=== PATIENT | female | born 1960 | race Caucasian/White ===

== ENCOUNTER 2021-03-30 13:39 | Outpatient (CLI) | payer MEDICARE, OTHER, SELFPAY ==
--- NOTE | ~2021-03-30 | US_ITS ---
EXAMINATION: US carotid duplex BI DATE: 03/30/2021 14:27 INDICATION: Peripheral atherosclerosis. TECHNIQUE: Grayscale, color Doppler, and pulsed Doppler images of the cervical carotid arteries were obtained. The degree of vessel stenosis is placed in one of the following categories: normal, <50%, 5 0-69%, >=70% but less than near-occlusion, near-occlusion, or total occlusion. Note that percent sten osis relative to normal distal artery lumen diameter is indirectly measured from velocity measurement s as described by Toan, et al. Radiology 2003; 229:340-346. Notes: Normal: Peak systolic velocity <125 centimeters/sec and no plaque <50%. Peak systolic velocity <125 ( EDV <40; ICA/CCA PSV ratio <2.0; used these factors only a tandem lesions or low cardiac output or co ntralateral disease) 50-69 %: PSV 125-230 (EDV 40-100; ratio 2-4) >= 70% but less than near occlusion: PSV greater than 230 (EDV > 100; ratio> 4.0) Near Occlusion: PSV that is variable; markedly narrowed lumen Occlusion: Absent flow on color/spectral Doppler and no lumen on allen scale. COMPARISON: None. FINDINGS: RIGHT: The right common carotid artery (CCA) peak systolic velocity (PSV) is 120 cm/s. The right internal ca rotid artery (ICA) PSV is 90 cm/s. The right ICA end-diastolic velocity (EDV) is 25 cm/s. The right I CA/CCA PSV ratio is 0.7. The external carotid artery (ECA) PSV is 143 cm/s. There is antegrade flow i n the right vertebral artery. LEFT: The left CCA PSV is 107 cm/s. The left ICA PSV is 127 cm/s. The left ICA EDV is 34 cm/s. The left ICA /CCA PSV ratio is 1.2. The ECA PSV is 190 cm/s. There is antegrade flow in the left vertebral artery . IMPRESSION: 1. Less than 50% stenosis in the right internal carotid artery by sonographic criteria. 2. 50-69% stenosis in the left internal carotid artery by sonographic criteria. Reviewed, dictated and finalized at location B. IMPRESSION: 1. Less than 50% stenosis in the right internal carotid artery by sonographic c riteria. 2. 50-69% stenosis in the left internal carotid artery by sonographic criteria.
== END 2021-03-30 13:40 | disposition home or self-care (01) ==
PROVIDERS: PCP Family Medicine; Visit Provider Family Medicine
DX: R09.89 Other specified symptoms and signs involving the circulatory and respiratory systems (principal); I65.23 Occlusion and stenosis of bilateral carotid arteries
CPT/HCPCS: 93880

== ENCOUNTER 2021-04-28 13:28 | Outpatient (CLI) | payer MEDICARE, OTHER, SELFPAY ==
--- NOTE | ~2021-04-28 | MM_ITS ---
EXAMINATION: MM screening [facility] BI w moises HISTORY: Screening TECHNIQUE: Craniocaudal and mediolateral oblique 3-D tomosynthesis images were obtained and synthetic 2-D images were generated. CAD analysis was submitted and interpreted. COMPARISON: No prior studies for comparison. BREAST PARENCHYMAL COMPOSITION: Breast composed of scattered areas of fibroglandular density FINDINGS: There is a 7 mm circumscribed mass in the upper inner quadrant of the right breast. There a re no suspicious masses, calcifications or architectural distortion in the left breast to suggest mal ignancy. IMPRESSION: 1. Circumscribed mass upper inner quadrant of the right breast measuring 7 mm. 2. Additional mammographic views and possible breast ultrasound are recommended. BI-RADS Category 0: Incomplete: Needs additional imaging evaluation. Reviewed, dictated and finalized at location A. IMPRESSION: 1. Circumscribed mass upper inner quadrant of the right breast measuring 7 mm. 2. Additional mammographic views and possible breast ultrasound are recommended . BI-RADS Category 0: Incomplete: Needs additional imaging evaluation.
--- NOTE | ~2021-04-28 | DEXA_ITS ---
Bone Density Report Name: Carleen Pepe Age: 60 Sex: Female Ethnicity: White Date of : 1960 Indication: postmenopausal; height loss; hysterectomy; Referring Provider: Gladis Joseph Study: Bone densitometry was performed. Exam Date: April 28, 2021 Accession number: [id number] Bone Density: Region BMD T-score Z-score Classification AP Spine (L1, L4) 1.248 1.9 3.5 Normal Femoral Neck (Left) 0.904 0.5 1.9 Normal Total Hip (Left) 1.165 1.8 2.9 Normal Total Hip Bilateral Avg 1.119 1.5 2.5 Normal Femoral Neck (Right) 0.840 -0.1 1.3 Normal Total Hip (Right) 1.071 1.1 2.1 Normal World Health Organization criteria for BMD impression classify patients as: Normal (T-score at or above -1.0), Osteopenia (T-score between -1.0 and -2.5), or Osteoporosis (T-score at or below -2.5). 10-year Fracture Risk: FRAX not reported because: All T-scores for Spine Total, Hip Total, Femoral Neck at or above -1.0 Clinical Information Provided by Patient: Smokes Has the following medical conditions: Hysterectomy Patient maximum height was 65 Menopause Age: 50 Drinks caffeinated beverages Onset of menses at age 12 Number of children 2 Impression: The patient has normal bone mass. The patient has risk factors, including: smoking. Discussion: BONE DENSITY IS ABOVE THE MINIMUM DESIRABLE LEVEL AT ALL SKELETAL SITES TESTED. This patient?s bone mineral density is above the minimum desirable level (T-score -1.0 or better) at all sites measured. The patient should follow a healthful lifestyle (good nutrition with adequate calcium and vitamin D, and appropriate weight-bearing exercise). Follow-Up: Consider repeating this study in 5 years or sooner if there is some new clinical indication. Reported by: ANA on 04/28/2021 1:52:00 PM. Reviewed, dictated and finalized at location ALydia SANTOS
== END 2021-04-28 13:29 | disposition home or self-care (01) ==
PROVIDERS: PCP Family Medicine; Visit Provider Family Medicine
DX: Z12.31 Encounter for screening mammogram for malignant neoplasm of breast (principal); Z78.0 Asymptomatic menopausal state; R92.8 Other abnormal and inconclusive findings on diagnostic imaging of breast
CPT/HCPCS: 77063; 77067; 77080

== ENCOUNTER 2021-05-06 10:55 | Outpatient (CLI) | payer MEDICARE, OTHER, SELFPAY ==
--- NOTE | ~2021-05-06 | MMUS_ITS ---
EXAMINATION: MM diagnostic mammo unilat RT, US breast RT complete HISTORY: Circumscribed 7 mm mass in upper inner quadrant of right breast on 04/28/2021 screening mammo gram TECHNIQUE: Additional 3-D tomosynthesis images of the right breast were performed and synthetic 2-D i mages were generated. CAD analysis was submitted and interpreted. High resolution complete right yue st ultrasound was performed. COMPARISON: 04/28/2021 bilateral digital screening mammogram FINDINGS: MAMMOGRAPHIC FINDINGS: Approximately 4 x 7 mm circumscribed low-density opacity is noted posteriorly in the upper inner quad rant of the right breast. Approximately 6.5 x 8.4 mm posterior upper outer quadrant opacity is noted. This has a radiolucent ce ntral area suggesting the fatty hilus of a probable lymph node. ULTRASOUND: 2:00 7 cm from nipple: 2.9 x 3.7 x 5.2 mm sonolucency without internal vascularity or suspicious shad owing 7:00 3 cm from nipple: 5.2 x 2.3 x 3.6 mm sonolucency, consistent with small cyst No suspicious mass or shadowing is evident. IMPRESSION: 1. Probable benign findings 2. 6 month diagnostic right mammogram and right breast ultrasound follow-up are recommended BI-RADS category 3, probably benign findings. Reviewed, dictated and finalized at location A. IMPRESSION: 1. Probable benign findings 2. 6 month diagnostic right mammogram and right breast ultrasound follow-up are recommended BI-RADS category 3, probably benign findings.
== END 2021-05-06 10:56 | disposition home or self-care (01) ==
LOC: ANHIMG 10:56
PROVIDERS: PCP Family Medicine; Visit Provider Family Medicine
DX: R92.8 Other abnormal and inconclusive findings on diagnostic imaging of breast (principal)
CPT/HCPCS: 76641; 77065

== ENCOUNTER → 2021-06-03 04:23 | Outpatient (CLI) | payer MEDICARE, OTHER, SELFPAY ==
[2021-06-03 18:23] LABS: SARS-CoV-2 RNA PCR Negative
== END ==
PROVIDERS: PCP Family Medicine; Visit Provider Family Medicine
DX: R05 Cough (principal); Z20.822 Contact with and (suspected) exposure to COVID-19
CPT/HCPCS: C9803; U0003; U0005

== ENCOUNTER 2021-07-07 01:39 | Day surgery (SDC) | payer MEDICARE, OTHER, SELFPAY ==
[2021-05-26 14:07] VITALS: BMI 26.7
--- NOTE | 2021-07-06 14:20 | PM.HPGS ---
History of Present Illness History of Present Illness Consent: Risks, benefits, and alternatives have been discussed and questions answered. Patient agrees to proceed with procedure. Chief complaint: neoplasm screening Narrative: Carleen Pepe is a 60 year old female referred for colon cancer screening. There is a family history of colon cancer Review of Systems Review of Systems: All systems reviewed & are unremarkable except as noted in HPI and below PMFSH Past Medical History Medical History Allergies Anxiety Arthritis Arthritis of carpometacarpal (CMC) joint of right thumb Diabetes Hypertension STEEN (nonalcoholic steatohepatitis) Type 2 diabetes mellitus with diabetic neuropathy, unspecified A1C was 7, some time last year (2018) per pt Type 2 diabetes mellitus with hyperglycemia Surgical History Surgical History H/O: section History of partial hysterectomy Hx of neck surgery Family History Family History Sibling Family history of diabetes mellitus in first degree relative Father Diabetes mellitus Mother Diabetes mellitus Hypertension Depression Heart disease Cerebrovascular accident Social History Social History Smoking packs per day: 1 Smoking cigarettes per day: 20.0 Smoking status: Former smoker Tobacco type: cigarettes Second hand tobacco smoke exposure: Yes Alcohol intake: former Substance use: former Substance use type: marijuana Living arrangements: alone Gender identity (if verbalized by the patient): Female Spiritual care concerns: No Agree to blood products: Yes Meds Home Medications and Allergies Home Medications Medication Instructions Recorded Confirmed Type lamotrigine 200 mg tablet 200 mg PO BID tablet 07/19/20 06/24/21 History aspirin 81 mg tablet,delayed 81 mg PO DAILY 02/21/21 06/24/21 History release calcium polycarbophil 625 mg tablet 1,250 mg PO DAILY 02/21/21 06/24/21 History duloxetine 30 mg capsule,delayed 60 mg PO DAILY cap 02/21/21 06/24/21 History release multivitamin 1 tablet PO DAILY 02/21/21 06/24/21 History cariprazine 1.5 mg capsule 1.5 mg PO DAILY 03/21/21 06/24/21 History rosuvastatin 10 mg tablet 10 mg PO DAILY #90 tablet 03/31/21 06/24/21 Rx quetiapine 100 mg tablet 100 mg PO QHS 04/13/21 06/24/21 History glimepiride 1 mg tablet 1 mg PO BIDWMEAL #180 tablet 04/15/21 06/24/21 Rx metformin 1,000 mg tablet 1,000 mg PO BID #180 tablet 04/27/21 06/24/21 Rx lisinopril 20 1 tablet PO BID 90 Days #180 tablet 06/16/21 06/24/21 Rx mg-hydrochlorothiazide 25 mg tablet hydrocodone 5 mg-acetaminophen 325 1 tablet PO Q6H PRN #30 tablet 06/24/21 06/24/21 Rx mg tablet Allergies Allergy/AdvReac Type Severity Reaction Status Date / Time No Known Allergies Allergy Verified 07/07/21 07:15 Exam Resp: Auscultation: clear to auscultation bilaterally Cardio: Rate: regular rate Rhythm: regular rhythm GI: GI Palp: Yes Soft to palpation and No Tenderness to palpation present (GI) Assessment and Plan Assessment and plan (1) Colon cancer screening: Code(s): Z12.11 - Encounter for screening for malignant neoplasm of colon Status: Acute Assessment and Plan: Colonoscopy with possible biopsy or polypectomy or cautery or injection of substances.
[2021-07-07 07:20] VITALS: BP 148/47; PULSE 85; RESP 20; TEMP 36.2; O2SAT 96; BMI 26.7
[2021-07-07 07:36] LABS: Glucose Point of Care 235 mg/dl (65-105)
[2021-07-07] MEDS: LACTATED RINGERS 1,000 ML 150 ML IV CONT (07:43)
--- NOTE | 2021-07-07 08:03 | WPDANESEPPF ---
Anes - Initial Pre Proc Eval Procedure: Operation Date: 07/07/21 08:30 Proposed Procedures p Screening Colonoscopy - Librado Johnson MD Date/Time: 07/07/21 08:03 Surgeon: Librado Johnson MD Pre Op Diagnosis: neoplasm screening Patient Data Age: 60 Gender: F Height: 1.65 m Weight: 72.9 kg Last Vital Signs Temp 97.1 F L 07/07/21 07:20 Pulse 85 07/07/21 07:20 Resp 20 07/07/21 07:20 BP 148/47 H 07/07/21 07:20 Pulse Ox 96 07/07/21 07:20 Allergies Allergy/AdvReac Type Severity Reaction Status Date / Time No Known Allergies Allergy Verified 07/07/21 07:15 Home Medications Medication Instructions Recorded Confirmed Type lamotrigine 200 mg tablet 200 mg PO BID tablet 07/19/20 06/24/21 History aspirin 81 mg tablet,delayed 81 mg PO DAILY 02/21/21 06/24/21 History release calcium polycarbophil 625 mg tablet 1,250 mg PO DAILY 02/21/21 06/24/21 History duloxetine 30 mg capsule,delayed 60 mg PO DAILY cap 02/21/21 06/24/21 History release multivitamin 1 tablet PO DAILY 02/21/21 06/24/21 History cariprazine 1.5 mg capsule 1.5 mg PO DAILY 03/21/21 06/24/21 History rosuvastatin 10 mg tablet 10 mg PO DAILY #90 tablet 03/31/21 06/24/21 Rx quetiapine 100 mg tablet 100 mg PO QHS 04/13/21 06/24/21 History glimepiride 1 mg tablet 1 mg PO BIDWMEAL #180 tablet 04/15/21 06/24/21 Rx metformin 1,000 mg tablet 1,000 mg PO BID #180 tablet 04/27/21 06/24/21 Rx lisinopril 20 1 tablet PO BID 90 Days #180 tablet 06/16/21 06/24/21 Rx mg-hydrochlorothiazide 25 mg tablet hydrocodone 5 mg-acetaminophen 325 1 tablet PO Q6H PRN #30 tablet 06/24/21 06/24/21 Rx mg tablet Laboratory Tests 07/07/21 07:30 POC Capillary Glucose 235 mg/dl H mg/dl (65-105) Patient hx anesthesia problems: none Family hx anesthesia problems: none Results Review: All pre-operative results and documents have been reviewed as part of the pre-operative evaluation. [facility] Past Medical History Medical History Allergies Anxiety Arthritis Arthritis of carpometacarpal (CMC) joint of right thumb Diabetes Hypertension STEEN (nonalcoholic steatohepatitis) Type 2 diabetes mellitus with diabetic neuropathy, unspecified A1C was 7, some time last year (2018) per pt Type 2 diabetes mellitus with hyperglycemia Surgical History Surgical History H/O: section History of partial hysterectomy Hx of neck surgery Family History Family History Sibling Family history of diabetes mellitus in first degree relative Father Diabetes mellitus Mother Diabetes mellitus Hypertension Depression Heart disease Cerebrovascular accident Social History Social History Smoking packs per day: 1 Smoking cigarettes per day: 20.0 Smoking status: Former smoker Tobacco type: cigarettes Second hand tobacco smoke exposure: Yes Alcohol intake: former Substance use: former Substance use type: marijuana Living arrangements: alone Gender identity (if verbalized by the patient): Female Spiritual care concerns: No Agree to blood products: Yes Anes - Eval Final PreProcedure Day of Procedure 07/07/21 08:03 Patient weight: overweight Heart: regular rate and rhythm Lungs: clear to auscultation Airway: Mallampati scale class II Neurological: alert and oriented Last oral intake: >/= 8 hours ASA classification: III Emergent: no Anesthetic plan: proceed Anesthesia type and monitoring: general GIVS and standard monitoring Results Review: All pre-operative results and documents have been reviewed as part of the pre-operative evaluation. Informed Consent: The patient's anesthetic plan and its attendant risks and benefits were discussed with the patient/family/POA. Questions were solicited and answers pr
[2021-07-07 08:44] VITALS: BP 106/65; PULSE 72; RESP 24; O2SAT 97
[2021-07-07 08:54] VITALS: BP 105/51; PULSE 70; RESP 14; O2SAT 97
[2021-07-07 09:04] VITALS: BP 131/67; PULSE 63; RESP 20; O2SAT 97
== END 2021-07-07 09:30 | disposition home or self-care (01) ==
PROVIDERS: PCP Family Medicine; Visit Provider Internal Medicine Gastroenterology
PROC: 0DJD8ZZ Inspection of Lower Intestinal Tract, Via Natural or Artificial Opening Endoscopic (ICD-10-PCS; CPT 45378; principal; 2021-07-07 08:30)
DX: Z12.11 Encounter for screening for malignant neoplasm of colon (principal); K57.30 Diverticulosis of large intestine without perforation or abscess without bleeding; E11.40 Type 2 diabetes mellitus with diabetic neuropathy, unspecified; K75.81 Nonalcoholic steatohepatitis (NASH); I10 Essential (primary) hypertension; F41.9 Anxiety disorder, unspecified; Z79.84 Long term (current) use of oral hypoglycemic drugs; Z79.82 Long term (current) use of aspirin; Z87.891 Personal history of nicotine dependence
CPT/HCPCS: G0121; 82948; J2704; J7120

== ENCOUNTER 2021-11-28 12:36 | Outpatient (CLI) | payer MEDICARE, OTHER, SELFPAY ==
--- NOTE | ~2021-11-28 | MMUS_ITS ---
EXAMINATION: MM diagnostic giancarlo RT w moises, US breast RT limited HISTORY: Six-month follow-up TECHNIQUE: Right ML, MLO and craniocaudal full field and spot 3-D tomosynthesis images were performed and synthetic 2-D images were generated. CAD analysis was submitted and interpreted. High resolution upper inner quadrant right breast ultrasound was performed. COMPARISON: 05/06/2021 diagnostic right mammogram and complete right breast ultrasound 04/28/2021 bilateral screening mammogram BREAST PARENCHYMAL COMPOSITION: There are scattered areas of fibroglandular density. FINDINGS: MAMMOGRAPHIC FINDINGS: Previous posterior inner mid left breast mass appears either diminished or resolved since 04/28/2021. Posterior stable circumscribed probable lymph node in the mid to upper outer right breast. ULTRASOUND: No suspicious mass is detected in the upper outer quadrant of the right breast from 12:00 to 3:00. IMPRESSION: 1. Benign finding 2. Routine annual mammographic screening is recommended BI-RADS Category 2: Benign finding(s). Reviewed, dictated and finalized at location A. M AUDITOR IMPRESSION: 1. Benign finding 2. Routine annual mammographic screening is recommended BI-RADS Category 2: Benign finding(s).
== END 2021-11-28 12:37 | disposition home or self-care (01) ==
LOC: ANHIMG 12:37
PROVIDERS: PCP Family Medicine; Visit Provider Family Medicine
DX: R92.8 Other abnormal and inconclusive findings on diagnostic imaging of breast (principal)
CPT/HCPCS: 76642; 77061; 77065; G0279

== ENCOUNTER 2022-11-07 08:09 | Outpatient (CLI) | payer MEDICARE, OTHER, SELFPAY ==
--- NOTE | ~2022-11-07 | MR_ITS ---
EXAMINATION: MR brain IAC wo/w con DATE: 11/07/2022 09:18 INDICATION: Vertigo. TECHNIQUE: Magnetic resonance imaging (MRI) of the brain and brainstem was performed without and with 16 mL MultiHance intravenous contrast. COMPARISON: None. FINDINGS: There are scattered areas of nonspecific increased T2-weighted signal intensity in the cere bral white matter, which is within normal limits for the patient's age. There is no intracranial hemo rrhage, acute infarction, or abnormal intracranial mass lesion. The ventricles are normal in size. Th ere is a mucous retention cyst in right maxillary sinus. The orbits are normal. The mastoid air cells are normal. The internal auditory canals and inner and middle ears are normal. IMPRESSION: 1. Normal aging brain. Reviewed, dictated and finalized at location A. TLELESS LOOM WEAVER IMPRESSION: 1. Normal aging brain.
== END 2022-11-07 08:10 | disposition home or self-care (01) ==
PROVIDERS: PCP Nurse Practitioner Family; Visit Provider Physician Assistant Medical
DX: R42 Dizziness and giddiness (principal); R79.89 Other specified abnormal findings of blood chemistry
CPT/HCPCS: 70553; A9577

== ENCOUNTER 2024-04-25 13:16 | Outpatient (CLI) | payer MEDICARE, SELFPAY ==
--- NOTE | ~2024-04-25 | MR_ITS ---
EXAMINATION: MR IAC wo con DATE: 04/25/2024 14:23 INDICATION: Tinnitus, unspecified ear TECHNIQUE: Magnetic resonance imaging (MRI) of the brain and brainstem was performed without intraven ous contrast. Sequences included sagittal and axial T1-weighted FSE, axial diffusion-weighted FS EPI, axial T2*-weighted GRE, axial T2-weighted FLAIR Propeller, axial T2-weighted Propeller, small field- of-view coronal FIESTA, small [id number] coronal T1-weighted FSE, and small [id number] axial T1 -weighted SPGR. Apparent diffusion coefficient (ADC) maps were created. . COMPARISON: 11/07/2022 FINDINGS: There are no areas of restricted diffusion to suggest acute infarction. No intracranial hemorrhage or abnormal intracranial mass lesion. There are scattered areas of nonspecific increased T2-weighted si gnal intensity in the cerebral white matter, predominantly involving the deep and periventricular whi te matter which is within normal limits for age. There are no intraparenchymal signal abnormalities s een on the other pulse sequences. The ventricles are symmetric and normal in size. There are no abnor mal extra-axial fluid collections. Flow voids are seen in the cerebral arteries on the T2-weighted se quences consistent with their expected patency. Normal seventh/eighth cranial nerve complexes. No ce rebellopontine angles masses. No evidence of mastoid or middle ear fluid. Mucous retention cyst in the right maxillary sinus. Visualized orbits and soft tissues are unremarkable. IMPRESSION: 1. Normal aging brain. No acute intracranial process. Reviewed, dictated and finalized at location A.
== END 2024-04-25 13:17 | disposition home or self-care (01) ==
PROVIDERS: PCP Nurse Practitioner Family; Visit Provider Nurse Practitioner Family
DX: H93.19 Tinnitus, unspecified ear (principal); R42 Dizziness and giddiness; R26.9 Unspecified abnormalities of gait and mobility
CPT/HCPCS: 70551

== ENCOUNTER 2024-07-15 08:00 | Outpatient (CLI) | payer MEDICARE, SELFPAY ==
--- NOTE | ~2024-07-15 | MM_ITS ---
EXAMINATION: MM screening [facility] BI w moises HISTORY: Screening TECHNIQUE: Craniocaudal and mediolateral oblique 3-D tomosynthesis images were obtained and synthetic 2-D images were generated. CAD analysis was submitted and interpreted. COMPARISON: Comparison to multiple prior studies sequentially, with oldest reviewed study dated 04/28. BREAST PARENCHYMAL COMPOSITION: Not dense: There are scattered areas of fibroglandular density. FINDINGS: There is no evidence of suspicious mass, calcification, or architectural distortion to sugg est malignancy in either breast. There has been no suspicious interval change. IMPRESSION: 1. No mammographic evidence of malignancy. 2. Recommend routine screening mammography in one year. BI-RADS Category 1: Negative Reviewed, dictated and finalized at location B.
--- NOTE | ~2024-07-15 | DEXA_ITS ---
Bone Density Report Name: LEANDRO SWENSON Age: 63 Sex: Female Ethnicity: White Date of : 1960 Indication: postmenopausal; screening for osteoporosis; height loss; hysterectomy; Referring Provider: SANDRA CAMPBELL Study: Bone densitometry was performed. Exam Date: July 15, 2024 Accession number: [id number] Bone Density: Region BMD T-score Z-score Classification AP Spine(L1-L4) 1.260 1.9 3.7 Normal Femoral Neck (Left) 0.835 -0.1 1.4 Normal Total Hip (Left) 1.076 1.1 2.4 Normal Femoral Neck (Right) 0.767 -0.7 0.8 Normal Total Hip (Right) 0.940 0.0 1.3 Normal Total Hip Mean 1.008 0.6 1.9 Normal World Health Organization criteria for BMD impression classify patients as: Normal (T-score at or above -1.0), Osteopenia (T-score between -1.0 and -2.5), or Osteoporosis (T-score at or below -2.5). 10-year Fracture Risk: FRAX not reported because: All T-scores for Spine Total, Hip Total, Femoral Neck at or above -1.0 Clinical Information Provided by Patient: Has the following medical conditions: Hysterectomy Patient maximum height was 65 Menopause Age: 50 Does not regularly consume dairy products Drinks caffeinated beverages Onset of menses at age 12 Number of children 2 Impression: The patient has normal bone mass. Discussion: BONE DENSITY IS ABOVE THE MINIMUM DESIRABLE LEVEL AT ALL SKELETAL SITES TESTED. This patient?s bone mineral density is above the minimum desirable level (T-score -1.0 or better) at all sites measured. The patient should follow a healthful lifestyle (good nutrition with adequate calcium and vitamin D, and appropriate weight-bearing exercise). Follow-Up: Consider repeating this study in 5 years or sooner if there is some new clinical indication. Reported by: ANA on 07/15/2024 8:52:00 AM. Reviewed, dictated and finalized at location ALydia SANTOS
--- NOTE | ~2024-07-15 | US_ITS ---
EXAMINATION: US carotid duplex BI DATE: 07/15/2024 09:49 INDICATION: Carotid stenosis TECHNIQUE: Grayscale, color Doppler, and pulsed Doppler images of the cervical carotid arteries were obtained. The degree of vessel stenosis is placed in one of the following categories: normal, <50%, 5 0-69%, >=70% but less than near-occlusion, near-occlusion, or total occlusion. Note that percent sten osis relative to normal distal artery lumen diameter is indirectly measured from velocity measurement s as described by Toan, et al. Radiology 2003; 229:340-346. Notes: Normal: Peak systolic velocity <125 centimeters/sec and no plaque <50%. Peak systolic velocity <125 ( EDV <40; ICA/CCA PSV ratio <2.0; used these factors only a tandem lesions or low cardiac output or co ntralateral disease) 50-69 %: PSV 125-230 (EDV 40-100; ratio 2-4) >= 70% but less than near occlusion: PSV greater than 230 (EDV > 100; ratio> 4.0) Near Occlusion: PSV that is variable; markedly narrowed lumen Occlusion: Absent flow on color/spectral Doppler and no lumen on allen scale. COMPARISON: None. FINDINGS: RIGHT: The right common carotid artery (CCA) peak systolic velocity (PSV) is 82 cm/s. The right internal car otid artery (ICA) PSV is 116 cm/s. The right ICA end-diastolic velocity (EDV) is 30 cm/s. The right I CA/CCA PSV ratio is 1.4. The external carotid artery (ECA) PSV is 152 cm/s. There is antegrade flow i n the right vertebral artery. LEFT: The left CCA PSV is 81 cm/s. The left ICA PSV is 93 cm/s. The left ICA EDV is 23 cm/s. The left ICA/C CA PSV ratio is 1.1. The ECA PSV is 106 cm/s. There is antegrade flow in the left vertebral artery. IMPRESSION: 1. Less than 50% stenosis in the right internal carotid artery by sonographic criteria. 2. Less than 50% stenosis in the left internal carotid artery by sonographic criteria. Reviewed, dictated and finalized at location B. IMPRESSION: 1. Less than 50% stenosis in the right internal carotid artery by sonographic c parviz. 2. Less than 50% stenosis in the left internal carotid artery by sonographic sukumar jacobs.
== END 2024-07-15 08:01 | disposition home or self-care (01) ==
PROVIDERS: PCP Physician Assistant Medical; Visit Provider Physician Assistant Medical
DX: Z12.31 Encounter for screening mammogram for malignant neoplasm of breast (principal); Z78.0 Asymptomatic menopausal state; R09.89 Other specified symptoms and signs involving the circulatory and respiratory systems; E28.39 Other primary ovarian failure
CPT/HCPCS: 77063; 77067; 77080; 93880